=== PATIENT | female | born 1945 | race Caucasian/White ===

== ENCOUNTER 2019-12-17 15:02 | Day surgery (SDC) | payer OTHER, SELFPAY ==
--- NOTE | 2019-12-17 | PATH_ITS ---
[facility] Accession Number: [id number] . 01 Material submitted: . PART A: colon - CECAL POLYP X2 PART B: colon - ASCENDING COLON POLYP PART C: colon - SIGMOID POLYP . 02 Diagnosis: A. Cecal Polyp: Portions of tubular adenoma x4. Superficial portion of colorectal mucosa x1 with no significant histomorphologic abnormality. . B. Ascending Colon Polyp: Portions of tubular adenoma x 2. . C. Sigmoid Polyp: Portions of tubular adenoma x3. [facility] 12/19/2019 1046 Local . 02 Electronically signed: . Saumya Morrison MD, Pathologist NPI- [id number] . 01 Gross description: . Part A: CECAL POLYP X2: Received in formalin are multiple fragment(s) of celis, soft tissue measuring 0.6 x 0.6 x 0.2 cm in aggregate submitted entirely in 1 cassette(s) Part B: ASCENDING COLON POLYP : Received in formalin are 2 fragment(s) of celis, soft tissue measuring 0.6 x 0.5 x 0.4 cm to 0.3 x 0.3 x 0.1 cm submitted entirely in 1 cassette(s) Part C: SIGMOID POLYP: Received in formalin are multiple fragment(s) of celis, soft tissue measuring 2.5 x 1.5 x 0.3 cm in aggregate submitted entirely in 1 cassette(s) /QBJ 12/18/2019 0755 Local . 02 Pathologist provided ICD-10: Z86.010, R19.5, K63.5 . 02 CPT . 641150, [id number], 793889 Performed at: [address], [place], [place] [id number] MD Shravan Romero MD Phone: [phone] Performed at: 02 [facility] [id number] [address] [place] [id number] MD Irish Stein MD Phone: [phone]
[2019-12-17 16:13] VITALS: BP 146/87; PULSE 81; RESP 16; TEMP 36.6; O2SAT 99; BMI 21.4
--- NOTE | 2019-12-17 16:23 | PM.HP.1 ---
History of Present Illness History of Present Illness Chief complaint: [id number] Meds Home Medications and Allergies Allergies Allergy/AdvReac Type Severity Reaction Status Date / Time amoxicillin Allergy Rash Verified 12/17/19 16:13 epinephrine AdvReac Nausea Verified 12/17/19 16:13 Review of Systems Review of Systems ROS: Yes All systems reviewed with the patient and are negative except as otherwise documented Exam Narrative Exam Narrative: Awake alert oriented x3, no acute distress, lungs clear to auscultation bilaterally, heart regular rate and rhythm, no lower extremity edema Assessment & Plan Assessment & Plan narrative: stool positive for occult blood for colonoscopy today
[2019-12-17] MEDS: SODIUM CHLORIDE 0.9% 1,000 ML 200 ML IV (16:39)
--- NOTE | 2019-12-17 17:46 | PM.OP.ENDO ---
Operative Date/Time/Diagnoses Date of procedure: 12/17/19 Procedure & Clinicians Study performed: Colonoscopy with snare polypectomy Monitored anesthesia care was administered by the anesthesia provider. Indications: Occult blood in stool, personal history of colon polyps, last colonoscopy was approx 10 years ago Procedure Notes Procedure in detail: Prior to the procedure, history and physical was performed, and patient medications and allergies were reviewed. Preprocedure nursing history and assessment was reviewed. Patient identification and proposed procedure were verified by the physician and nurse in the procedure room. The physical status of the patient was reassessed after the procedure. After informed consent was obtained including risks, benefits, and alternatives, the scope was passed under direct vision. Throughout the procedure, the patient's blood pressure, pulse, and oxygen saturations were monitored continuously. The colonoscope was introduced through the anus and advanced to the cecum as identified by the appendiceal orifice and ileocecal valve. The patient tolerated the procedure well. Bowel prep was deemed adequate to detect polyps greater than 5 mm. Perianal and digital rectal examinations were unremarkable. Retroflexion in the rectum was unrevealing Many medium and large mouth diverticula were noted throughout the entire colon. Four sessile and semi sessile polyps 4-7 mm were removed from the cecum (2), ascending colon, and sigmoid colon with a cold snare and retrieved Many solid stool balls were seen throughout the colon and partially impaired visualization Impression: Pancolonic diverticulosis Four 4-7 mm polyps removed from the cecum, ascending colon, and sigmoid colon Complications: other (EBL minimal. No complications) Post-procedure Plan for aftercare: Follow-up pathology results Repeat colonoscopy to date to be determined based on pathology results. Utilize an extended bowel prep for the next colonoscopy Resume home medications High fiber diet Discharge home with escort
[2019-12-17 17:49] VITALS: BP 126/72; PULSE 80; RESP 16; TEMP 36.7; O2SAT 99
[2019-12-17 17:51] VITALS: BP 143/77; PULSE 88; RESP 20; O2SAT 99
[2019-12-17 17:57] VITALS: BP 160/81; PULSE 86; RESP 17; O2SAT 98
[2019-12-17 18:17] VITALS: BP 163/80; PULSE 83; RESP 16; TEMP 36.4; O2SAT 99
== END 2019-12-17 18:35 | disposition home or self-care (01) ==
PROVIDERS: PCP Registered Nurse; Referring Provider Internal Medicine; Visit Provider Internal Medicine
PROC: 0DJD8ZZ Inspection of Lower Intestinal Tract, Via Natural or Artificial Opening Endoscopic (ICD-10-PCS; CPT 45378; principal; 2019-12-17 16:00)
DX: R19.5 Other fecal abnormalities (principal); K57.30 Diverticulosis of large intestine without perforation or abscess without bleeding; D12.2 Benign neoplasm of ascending colon; D12.0 Benign neoplasm of cecum; D12.5 Benign neoplasm of sigmoid colon
CPT/HCPCS: 45385; J2250; J2704; J3010